=== PATIENT | female | born 1995 | race Caucasian/White ===

== ENCOUNTER 2018-09-14 05:29 | Emergency (ER) | payer OTHER, BC ==
--- NOTE | 2018-09-14 05:55 | ER Document Report ---
ED Medical Screen (RME) - General Chief Complaint: Vag Bleeding, +preg <12wks Stated Complaint: ABDOMINAL PAIN Time Seen by Provider: 09/14/18 05:41 Notes: Patient states she is 8-10 weeks . Last night she started spotting and this morning when she woke up, she had vaginal bleeding her last menstrual period was in the beginning of August. She denies any fever, chills, or night sweats. TRAVEL OUTSIDE OF THE [place] IN LAST 30 DAYS: No - Related Data Allergies/Adverse Reactions: No Known Allergies Allergy (Verified 09/14/18 05:30) Physical Exam - Vital signs Vitals: Temp Pulse Resp BP Pulse Ox 98.2 F 88 16 129/85 H 100 09/14/18 05:33 09/14/18 05:33 09/14/18 05:33 09/14/18 05:33 09/14/18 05:33 - Abdominal Tenderness: Tender - Lower abdomen Course - Re-evaluation Re-evalutation: I have greeted and performed a rapid initial assessment of this patient. A comprehensive ED assessment and evaluation of the patient, analysis of test results and completion of medical decision making process will be conducted by an additional ED providers. - Vital Signs Vital signs: Temp Pulse Resp BP Pulse Ox 98.2 F 88 16 129/85 H 100 09/14/18 05:33 09/14/18 05:33 09/14/18 05:33 09/14/18 05:33 09/14/18 05:33
[2018-09-14 06:21] LABS: ABSOLUTE EOSINOPHILS # (AUTO) 0.3 10^3/uL (0.0-0.6); ABSOLUTE LYMPHOCYTES (AUTO) 2.5 10^3/uL (0.5-4.7); ABSOLUTE MONOCYTES (AUTO) 0.5 10^3/uL (0.1-1.4); BASOPHILS % (AUTO) 0.4 % (0-2); EOSINOPHILS % (AUTO) 3.9 % (0-6); HEMATOCRIT 42.9 % (36.0-47.0); HEMOGLOBIN 14.5 g/dL (12.0-15.5); LYMPHOCYTES % (AUTO) 29.6 % (13-45); MEAN CORPUSCULAR HGB CONC 33.7 g/dL (32.0-36.0); MEAN CORPUSCULAR VOLUME 86 fl (80-97); MONOCYTES % (AUTO) 5.7 % (3-13); PLATELET COUNT 348 10^3/uL (150-450); RED BLOOD COUNT 4.99 10^6/uL (3.72-5.28); RED CELL DISTRIBUTION WIDTH 13.4 % (11.5-14.0); SEGMENTED NEUTROPHILS % (AUTO) 60.4 % (42-78); TOTAL CELLS COUNTED % (AUTO) 100 %; WHITE BLOOD COUNT 8.4 10^3/uL (4.0-10.5)
[2018-09-14 06:51] LABS: APPEARANCE,URINE SLIGHTLY-CLOUDY; BILIRUBIN,URINE NEGATIVE (NEGATIVE); COLOR,URINE YELLOW; GLUCOSE, URINE NEGATIVE (NEGATIVE); KETONES,URINE NEGATIVE (NEGATIVE); LEUKOCYTE ESTERASE,URINE NEGATIVE (NEGATIVE); NITRITE,URINE NEGATIVE (NEGATIVE); PROTEIN,URINE NEGATIVE (NEGATIVE); URINE SPECIFIC GRAVITY 1.015; UROBILINOGEN,URINE NEGATIVE mg/dL (<2.0)
--- NOTE | 2018-09-14 06:58 | RADIOLOGY REPORT (SQ) ---
Ultrasound OB transvaginal on 09/14/2018 CLINICAL INDICATION: , vaginal bleeding COMPARISON: None FINDINGS: Multiple sonographic images are obtained throughout the pelvis by transvaginal approach, both transverse and sagittal images are obtained. Uterus measures approximately 7.6 x 4.0 x 3.7 cm. Endometrial stripe measures 1 cm. The left ovary measures approximately 1.5 x 2.1 x 1.6 cm. Flow is demonstrated in the left ovary. Right ovary is not visualized. No adnexal mass or fluid collection is noted. No free fluid is noted. There is a single early intrauterine with gestational sac with surrounding decidual reaction. There is a probable small yolk sac but no pole visualized. Estimated gestational age by gestational sac diameter is an approximate five week gestation. IMPRESSION: Single early intrauterine of approximate five week gestation. Recommend clinical follow-up and short-term follow-up imaging when indicated.
[2018-09-14 07:06] LABS: ANION GAP 14 (5-19); BLOOD UREA NITROGEN 10 mg/dL (7-20); CALCIUM 9.8 mg/dL (8.4-10.2); CARBON DIOXIDE 23 mmol/L (22-30); CHLORIDE 106 mmol/L (98-107); GLUCOSE 100 mg/dL (75-110); POTASSIUM 4.1 mmol/L (3.6-5.0)
--- NOTE | 2018-09-14 07:21 | ER Document Report ---
ED General - General Chief Complaint: Vag Bleeding, +preg <12wks Stated Complaint: ABDOMINAL PAIN Time Seen by Provider: 09/14/18 05:41 TRAVEL OUTSIDE OF THE [place] IN LAST 30 DAYS: No - HPI Notes: Patient is a 23-year-old female that presents to the emergency department for chief complaint of vaginal bleeding and . Patient states she is 7 weeks gestational age by dates. She is . She started noticing some bright red vaginal spotting last night. When she woke up this morning she had suprapubic cramping and was passing bright red blood clots. Currently she states the bleeding has stopped and the cramping is gone. Past Medical History: [] Past Surgical History: [] Social History: [] Family History: Reviewed and noncontributory for presenting illness Allergies: Reviewed, see documented allergy list. REVIEW OF SYSTEMS: CONSTITUTIONAL : No fever No chills No diaphoresis No recent illness EENT: No vision changes No congestion No sore throat CARDIOVASCULAR: No chest pain No palpitations RESPIRATORY: No shortness of breath No cough No difficulty breathing GASTROINTESTINAL: abdominal pain No nausea No vomiting No diarrhea GENITOURINARY: Vaginal bleeding No dysuria No hematuria No difficulty urinating MUSCULOSKELETAL: No back pain No leg pain No arm pain SKIN: No rashes No lesions LYMPHATIC: No swollen, enlarged glands. NEUROLOGICAL: No lightheadedness No headache No weakness No paresthesias PSYCHIATRIC: No anxiety No depression PHYSICAL EXAMINATION: Vital signs reviewed, nursing noted reviewed. GENERAL: Well-appearing, well-nourished and in no acute distress. HEAD: Atraumatic, normocephalic. EYES: Eyes appear normal, extraocular movements intact, sclera anicteric, conjunctiva are normal. ENT: nares patent, oropharynx clear without exudates. Moist mucous membranes. NECK: Normal range of motion, supple without lymphadenopathy LUNGS: Breath sounds clear to auscultation bilaterally and equal. No wheezes rales or rhonchi. HEART: Regular rate and rhythm without murmurs ABDOMEN: Soft, nontender, normoactive bowel sounds. No rebound, guarding, or rigidity. No masses appreciated. EXTREMITIES: Nontender, good range of motion, no pitting or edema. NEUROLOGICAL: No focal neurological deficits. Moves all extremities spontaneously Motor and sensory grossly intact on exam. PSYCH: Normal mood, normal affect. SKIN: Warm, Dry, normal turgor, no rashes or lesions noted on exposed skin - Related Data Allergies/Adverse Reactions: No Known Allergies Allergy (Verified 09/14/18 05:30) Past Medical History - General Last Menstrual Period: Aug 04 - Social History Smoking Status: Never Smoker Family History: Reviewed & Not Pertinent Patient has suicidal ideation: No Patient has homicidal ideation: No Renal/ Medical History: Denies: Hx Peritoneal Dialysis Review of Systems - Review of Systems Notes: Dictated Physical Exam - Vital signs Vitals: Temp Pulse Resp BP Pulse Ox 98.2 F 88 16 129/85 H 100 09/14/18 05:33 09/14/18 05:33 09/14/18 05:33 09/14/18 05:33 09/14/18 05:33 - Notes Notes: Dictated Course - Re-evaluation Re-evalutation: 09/14/18 07:37 Vitals reviewed. Nursing notes reviewed. Ultrasound shows single live intrauterine gestation at roughly 5 weeks. There is no ectopic . Her blood type is Rh positive and RhoGam not indicated. Patient states her bleeding and cramping has stopped. She is feeling much better. She has an appointment with [facility] in 5 days which she is encouraged to keep. I told her to call the office tomorrow to see if they would like to follow with her sooner. I counseled her on symptoms of threatened miscarriage. She will continue taking vitamins. She will return for any new or worsening symptoms. Discharged home in stable condition. Laboratory 09/14/18 09/14/18 09/14/18 05:52 05:52 05:52 WBC RBC Hgb Hct MCV MCH MCHC RDW Plt Count Seg Neutrophils % Lymphocytes % Monocytes % Eosinophils % Basophils % Absolute Neutrophils Absolute Lymphocytes Absolute Monocytes Absolute Eosinophils Absolute Basophils Sodium 143.0 Potassium 4.1 Chloride 106 Carbon Dioxide 23 Anion Gap 14 BUN 10 Creatinine 0.66 Est GFR ( Amer) > 60 Est GFR (Non-Af Amer) > 60 Glucose 100 Calcium 9.8 Beta HCG, Quant 406.80 H Total Beta HCG POSITIVE Urine Color Urine Appearance Urine pH Ur Specific [place] Urine Protein Urine Glucose (UA) Urine Ketones Urine Blood Urine Nitrite Urine Bilirubin Urine Urobilinogen Ur Leukocyte Esterase Urine WBC (Auto) Urine RBC (Auto) Urine Bacteria (Auto) Squamous Epi Cells Auto Urine Mucus (Auto) Urine Ascorbic Acid Blood Type A POSITIVE Rhogam Indicated RHOGAM NOT INDICATED 09/14/18 09/14/18 05:57 06:19 WBC 8.4 RBC 4.99 Hgb 14.5 Hct 42.9 MCV 86 MCH 29.0 MCHC 33.7 RDW 13.4 Plt Count 348 Seg Neutrophils % 60.4 Lymphocytes % 29.6 Monocytes % 5.7 Eosinophils % 3.9 Basophils % 0.4 Absolute Neutrophils 5.0 Absolute Lymphocytes 2.5 Absolute Monocytes 0.5 Absolute Eosinophils 0.3 Absolute Basophils 0.0 Sodium Potassium Chloride Carbon Dioxide Anion Gap BUN Creatinine Est GFR ( Amer) Est GFR (Non-Af Amer) Glucose Calcium Beta HCG, Quant Total Beta HCG Urine Color YELLOW Urine Appearance SLIGHTLY-CLOUDY Urine pH 5.0 Ur Specific [place] 1.015 Urine Protein NEGATIVE Urine Glucose (UA) NEGATIVE Urine Ketones NEGATIVE Urine Blood LARGE H Urine Nitrite NEGATIVE Urine Bilirubin NEGATIVE Urine Urobilinogen NEGATIVE Ur Leukocyte Esterase NEGATIVE Urine WBC (Auto) 1 Urine RBC (Auto) 11 Urine Bacteria (Auto) TRACE Squamous Epi Cells Auto 1 Urine Mucus (Auto) RARE Urine Ascorbic Acid NEGATIVE Blood Type Rhogam Indicated Transvaginal US 09/14/18 05:36 IMPRESSION: Single early intrauterine of approximate five week gestation. Recommend clinical follow-up and short-term follow-up imaging when indicated. - Vital Signs Vital signs: Temp Pulse Resp BP Pulse Ox 98.2 F 88 16 129/85 H 100 09/14/18 05:33 09/14/18 05:33 09/14/18 05:33 09/14/18 05:33 09/14/18 05:33 - Laboratory Result Diagrams: 09/14/18 05:57 09/14/18 05:52 Laboratory results interpreted by me: 09/14/18 09/14/18 05:52 06:19 Beta HCG, Quant 406.80 H Urine Blood LARGE H Discharge - Discharge Clinical Impression: Threatened miscarriage Condition: Stable Disposition: HOME, SELF-CARE Instructions: Bleeding During Early ([facility]), Threatened Miscarriage ( [facility]) Additional Instructions: Please return to the emergency department if you have any worsening, or concern of your symptoms. Please return to the emergency department if you develop chest pain, difficulty breathing, severe abdominal pain, or ongoing vomiting. Please follow-up with your primary care physician in 2-3 days and any other recommended physicians. If prescribed, take all medications as directed. If you have any questions or concerns do not hesitate to return the emergency department for evaluation. [] Referrals: [facility] [Provider Group] - Follow up in 3-5 days
[2018-09-14 07:41] VITALS: BP 121/72
== END 2018-09-14 07:40 | disposition home or self-care (01) ==
LOC: ER 05:29
DX: O20.0 Threatened abortion (principal); O26.891 Other specified pregnancy related conditions, first trimester; R10.30 Lower abdominal pain, unspecified; Z3A.01 Less than 8 weeks gestation of pregnancy
CPT/HCPCS: 36415; 76817; 80048; 81001; 84702; 85025; 86900; 86901; 93976; 99284